=== PATIENT | female | born 1975 | race African-American/Black ===

== ENCOUNTER 2017-07-11 08:18 | Emergency (ER) | payer OTHER ==
[2017-07-11 08:31] VITALS: BP 147/95; PULSE 70; TEMP 98; BMI 47.5
--- NOTE | 2017-07-11 09:29 | PDOC ---
History of Present Illness - General Chief Complaint: Pain Stated Complaint: LT KNEE PAIN Time Seen by Provider: 07/11/17 09:08 History Source: Patient Exam Limitations: No Limitations - History of Present Illness Initial Comments: 07/11/17 09:23 42 yr female with c/o left knee chronic pain has had 2 knee meniscal tears repaired by . Pt states last night started with left knee pain that is worse this am getting out of the bed. Pt has chronic pain. Pt denies ay direct trauma. Past History - Past Medical History Allergies/Adverse Reactions: Allergies Allergy/AdvReac Type Severity Reaction Status Date / Time epinephrine Allergy Severe Verified 07/11/17 08:27 [From Primatene Mist] epinephrine bitartrate Allergy Severe Verified 07/11/17 08:27 [From Primatene Mist] Shellfish Allergy Verified 07/11/17 08:27 Home Medications: Ambulatory Orders NK [No Known Home Medication] 07/11/17 Anemia: No Asthma: Yes Cancer: No Cardiac Disorders: No CVA: No COPD: No CHF: No Dementia: No Diabetes: No GI Disorders: No Disorders: No HTN: No Hypercholesterolemia: No Liver Disease: No Seizures: No Thyroid Disease: No Other medical history: LT KNEE - Surgical History Abdominal Surgery: No Appendectomy: No Cardiac Surgery: No Cholecystectomy: No Lung Surgery: No Neurologic Surgery: No - Reproductive History (#): 4 Para: 3 Therapeutic (s) & number: Yes Spontaneous : 1 - Suicide/Smoking/Psychosocial Hx Smoking Status: No Smoking History: Never smoked Have you smoked in the past 12 months: No Number of Cigarettes Smoked Daily: 0 Information on smoking cessation initiated: No Hx Alcohol Use: No Drug/Substance Use Hx: No Substance Use Type: None Hx Substance Use Treatment: No *Physical Exam - Vital Signs Last Vital Signs Temp Pulse Resp BP Pulse Ox 98.0 F 70 18 147/95 100 07/11/17 08:28 07/11/17 08:28 07/11/17 08:28 07/11/17 08:28 07/11/17 08:28 - Physical Exam General Appearance: Yes: Nourished, Appropriately Dressed, Obese HEENT: positive: EOMI, ANTONI Musculoskeletal: positive: Normal Inspection Extremity: positive: Normal Capillary Refill, Normal Inspection, Tender ( [place], tender laterally), Other (neg calf tenderness or swelling). negative : Normal Range of Motion, Swelling, Calf Tenderness, Erythema, Inflammation ED Treatment Course - RADIOLOGY Radiology Studies Ordered: Category Date Time Status KNEE 3 POS-LEFT [RAD] Stat Radiology 07/11/17 09:15 Ordered Medical Decision Making - Medical Decision Making 07/11/17 10:11 cc: acute on chronic knee pain pt states 2 days pain to lef tknee with bending and walking, tender to patella pt has percocet, meloxicamb at home did not take any meds [employer] will get xray percocet for pain salvador wrap to the knee, pt has immobilizer at home that fits her leg *DC/Admit/Observation/Transfer Diagnosis at time of Disposition: Knee pain Qualifiers: Chronicity: chronic Laterality: left Qualified Code(s): M25.562 - Pain in left knee - Discharge Dispostion Disposition: HOME Condition at time of disposition: Fair - Referrals Referrals: Gelacio Elder MD [Primary Care Provider] - Guy Jo MD [Staff Physician] - - Patient Instructions Additional Instructions: elevate your knee and apply ice every 2hrs for 20 minutes for the next 2 days use your knee immobilizer while awake take your pain medicine as needed and call today to set up appointment for next week
== END 2017-07-11 10:13 | disposition home or self-care (01) ==
LOC: JERFT 08:18
DX: M25.562 Pain in left knee (principal); G89.29 Other chronic pain
CPT/HCPCS: 73562-TC-LT; 99281-25

== ENCOUNTER → 2018-10-16 | Day surgery (SDC) | payer OTHER ==
[2018-10-12 16:33] VITALS: BMI 47.0
[~2018-10-16] MED LIST: LIDOCAINE HCL 2% (20ML MULTI-DOSE VIAL) NR ONE; ONDANSETRON *ODT* 4 MG TABLET ONE; ONDANSETRON 4 MG/2 ML VIAL IVPUSH ONE
[2018-10-16 09:39] VITALS: BP 135/83; PULSE 72; TEMP 98.4
== END | disposition home or self-care (01) ==
LOC: FASU 08:43
PROVIDERS: ATTEND Orthopaedic Surgery
PROC: 0LN80ZZ Release Left Hand Tendon, Open Approach (ICD-10-PCS; principal; 2018-10-16)
DX: M65.312 Trigger thumb, left thumb (principal); Z53.8 Procedure and treatment not carried out for other reasons
CPT/HCPCS: 84703; 87070; Q0162